=== PATIENT | male | born 1970 | race Hispanic/Latino ===

== ENCOUNTER 2018-08-09 23:47 | Emergency (ER) | payer SELFPAY ==
[~2018-08-09 23:47] MED LIST: CARV12.511 PO; HYDR-4154 PO; INSU100C6 SQ; INSU100V12 SQ; LEVO250T59 PO
[2018-08-10 00:29] LABS: BASOPHILS % (AUTO) 0.9 % (0.0-5.0); HEMATOCRIT 37.2 % (42-54); LYMPHOCYTES % (AUTO) 30.4 % (21.0-51.0); MEAN CORPUSCULAR HEMOGLOBIN 30.3 pg (27.0-33.0); MEAN CORPUSCULAR HGB CONC 34.2 g/dL (32.0-36.0); MEAN CORPUSCULAR VOLUME 88.5 fL (79-99); MONOCYTES % (AUTO) 5.7 % (3.0-13.0); NUCLEATED RED BLOOD CELLS 0.1 % (0.0-0.19); PLATELET COUNT (AUTO) 339 K/uL (130-400); RED CELL DISTRIBUTION WIDTH 14.6 % (11.0-15.5); WHITE BLOOD COUNT (AUTO) 9.6 K/uL (4.8-10.8)
[2018-08-10 00:48] LABS: INR 0.89 (0.85-1.15); PARTIAL THROMBOPLASTIN TIME 28.5 SEC (26.3-35.5); PROTHROMBIN TIME 9.4 SEC (9.6-11.6)
[2018-08-10 01:09] LABS: CREATININE 5.6 mg/dL (0.5-1.5); POTASSIUM 3.2 mmol/L (3.5-5.1)
[2018-08-10 01:14] LABS: ALBUMIN 3.3 g/dL (3.5-5.0); BILIRUBIN,TOTAL 0.2 mg/dL (0.2-1.0); TOTAL PROTEIN, SERUM 8.5 g/dL (6.0-8.3)
== END 2018-08-10 02:10 | disposition home or self-care (01) ==
LOC: EDH 23:47
DX: E11.65 Type 2 diabetes mellitus with hyperglycemia (principal); E11.22 Type 2 diabetes mellitus with diabetic chronic kidney disease; I12.0 Hypertensive chronic kidney disease with stage 5 chronic kidney disease or end stage renal disease; N18.6 End stage renal disease; Z99.2 Dependence on renal dialysis; Z79.4 Long term (current) use of insulin
CPT/HCPCS: 36415; 80053; 82550; 84484; 85025; 85610; 85730; 93005

== ENCOUNTER 2018-11-02 22:03 | Emergency (ER) | payer MEDICARE ==
[2018-11-02] MEDS ORDERED: CLONIDINE HCL 0.1 MG TABLET ONE (23:04)
[2018-11-02 23:23] LABS: INR 0.93 (0.85-1.15); PARTIAL THROMBOPLASTIN TIME 29.9 SEC (26.3-35.5); PROTHROMBIN TIME 9.8 SEC (9.6-11.6)
[2018-11-02 23:36] LABS: ALANINE AMINOTRANSFERASE 13 U/L (12-78); ASPARTATE AMINOTRANSFERASE 16 U/L (10-37); BILIRUBIN,TOTAL 0.3 mg/dL (0.2-1.0); CARBON DIOXIDE 28 mmol/L (21-32); CHLORIDE 97 mmol/L (101-111); CREATINE KINASE, TOTAL 312 U/L (21-232); GLOMERULAR FILTR. RATE CALC 7 mL/min (>60); MYOGLOBIN 456 ng/mL (10-92); POTASSIUM 3.7 mmol/L (3.5-5.1); SODIUM SERUM 134 mmol/L (136-145); TOTAL PROTEIN, SERUM 7.2 g/dL (6.0-8.3); UREA NITROGEN, BLOOD 39 mg/dL (7-18)
[2018-11-02 23:38] LABS: BASOPHILS % (AUTO) 0.7 % (0.0-5.0); EOSINOPHILS % (AUTO) 3.9 % (0.0-8.0); HEMATOCRIT 31.7 % (42-54); LYMPHOCYTES % (AUTO) 22.1 % (21.0-51.0); MEAN CORPUSCULAR HEMOGLOBIN 31.4 pg (27.0-33.0); MEAN CORPUSCULAR HGB CONC 34.4 g/dL (32.0-36.0); MEAN CORPUSCULAR VOLUME 91.1 fL (79-99); MONOCYTES % (AUTO) 6.7 % (3.0-13.0); NEUTROPHILS % (AUTO) 66.6 % (40.0-77.0); PLATELET COUNT (AUTO) 282 K/uL (130-400); RED BLOOD CELL COUNT(AUTO) 3.47 MIL/uL (4.50-6.20); RED CELL DISTRIBUTION WIDTH 14.9 % (11.0-15.5); WHITE BLOOD COUNT (AUTO) 10.9 K/uL (4.8-10.8)
[2018-11-02 23:39] LABS: CREATININE 8.3 mg/dL (0.5-1.5); GLUCOSE,RANDOM 512 mg/dL (70-105)
[2018-11-02 23:40] LABS: ALCOHOL, BLOOD < 3 mg/dL (0-10)
== END 2018-11-03 01:00 | disposition home or self-care (01) ==
LOC: EDH 22:03
DX: G51.0 Bell's palsy (principal); E11.22 Type 2 diabetes mellitus with diabetic chronic kidney disease; I12.9 Hypertensive chronic kidney disease with stage 1 through stage 4 chronic kidney disease, or unspecified chronic kidney disease; N18.3 Chronic kidney disease, stage 3 (moderate); Z79.4 Long term (current) use of insulin; Z99.2 Dependence on renal dialysis
CPT/HCPCS: 36415; 70450; 71045; 80053; 82550; 83874; 84484; 85025; 85610; 85730; 93005; 99285; G0480

== ENCOUNTER 2018-11-07 14:01 | Emergency (ER) | payer MEDICARE ==
[2018-11-07 14:48] LABS: BASOPHILS % (AUTO) 0.1 % (0.0-5.0); HEMATOCRIT 32.4 % (42-54); LYMPHOCYTES % (AUTO) 7.3 % (21.0-51.0); MEAN CORPUSCULAR HEMOGLOBIN 30.6 pg (27.0-33.0); MEAN CORPUSCULAR HGB CONC 33.9 g/dL (32.0-36.0); MEAN CORPUSCULAR VOLUME 90.3 fL (79-99); MONOCYTES % (AUTO) 2.1 % (3.0-13.0); NEUTROPHILS % (AUTO) 90.5 % (40.0-77.0); PLATELET COUNT (AUTO) 299 K/uL (130-400); RED BLOOD CELL COUNT(AUTO) 3.59 MIL/uL (4.50-6.20); RED CELL DISTRIBUTION WIDTH 14.3 % (11.0-15.5); WHITE BLOOD COUNT (AUTO) 15.1 K/uL (4.8-10.8)
[2018-11-07] MEDS ORDERED: LORAZEPAM 2 MG/ML 1 ML VIAL ONE (15:02)
[2018-11-07] MEDS ORDERED: HYDRALAZINE HCL 20 MG/ML VIAL ONE (15:02)
[2018-11-07 15:11] LABS: ALBUMIN 2.9 g/dL (3.5-5.0); BILIRUBIN,TOTAL 0.2 mg/dL (0.2-1.0); POTASSIUM 3.9 mmol/L (3.5-5.1); TOTAL PROTEIN, SERUM 7.1 g/dL (6.0-8.3)
[2018-11-07] MEDS ORDERED: INSULIN HUMULIN R 100 UNIT/ML 3ML ONE ×2 (16:10→17:18)
[2018-11-07] MEDS ORDERED: DiphenhydrAMINE HCL 50 MG/ML VIAL ONE (17:40)
[2018-11-07] MEDS ORDERED: HALOPERIDOL LACTATE 5 MG/ML VIAL ONE (17:41)
== END 2018-11-07 20:53 | disposition home or self-care (01) ==
LOC: EDH 14:01
DX: E11.65 Type 2 diabetes mellitus with hyperglycemia (principal); I12.9 Hypertensive chronic kidney disease with stage 1 through stage 4 chronic kidney disease, or unspecified chronic kidney disease; E11.22 Type 2 diabetes mellitus with diabetic chronic kidney disease; N18.3 Chronic kidney disease, stage 3 (moderate); F41.9 Anxiety disorder, unspecified; Z99.2 Dependence on renal dialysis
CPT/HCPCS: 36415; 80053; 82948; 85025; 93005; 96372; 96374; 96375; 96376; 99285; J0360; J1200; J1630; J1815 ×2; J2060

== ENCOUNTER → 2019-02-11 | Outpatient (CLI) | payer MEDICARE | END | disposition home or self-care (01) | LOC: OIH 13:25 | PROVIDERS: ATTEND Family Medicine | DX: M25.551 Pain in right hip (principal); M25.511 Pain in right shoulder; M25.512 Pain in left shoulder | CPT/HCPCS: 73030; 73502 ==

== ENCOUNTER 2019-03-14 21:40 | Observation (INO) | payer MEDICARE ==
[~2019-03-14] VITALS: Ht 167.6 cm; Wt 85.7 kg
[2019-03-14 23:26] LABS: EOSINOPHILS % (AUTO) 4.1 % (0.0-8.0); HEMATOCRIT 33.1 % (42-54); LYMPHOCYTES % (AUTO) 28.6 % (21.0-51.0); MEAN CORPUSCULAR HEMOGLOBIN 31.5 pg (27.0-33.0); MEAN CORPUSCULAR HGB CONC 34.6 g/dL (32.0-36.0); MEAN CORPUSCULAR VOLUME 90.9 fL (79-99); MONOCYTES % (AUTO) 7.1 % (3.0-13.0); NEUTROPHILS % (AUTO) 58.2 % (40.0-77.0); PLATELET COUNT (AUTO) 203 K/uL (130-400); RED BLOOD CELL COUNT(AUTO) 3.64 MIL/uL (4.50-6.20); RED CELL DISTRIBUTION WIDTH 14.2 % (11.0-15.5); WHITE BLOOD COUNT (AUTO) 7.7 K/uL (4.8-10.8)
[2019-03-14 23:39] LABS: INR 0.98 (0.85-1.15); PARTIAL THROMBOPLASTIN TIME 25.2 SEC (26.3-35.5); PROTHROMBIN TIME 10.3 SEC (9.6-11.6)
[2019-03-14 23:45] LABS: ALBUMIN 3.7 g/dL (3.5-5.0); BILIRUBIN,TOTAL 0.3 mg/dL (0.2-1.0); POTASSIUM 5.4 mmol/L (3.5-5.1); TOTAL PROTEIN, SERUM 7.8 g/dL (6.0-8.3)
[2019-03-14 23:47] LABS: CREATININE 8.2 mg/dL (0.5-1.5)
[2019-03-15] VITALS (7 sets, daily range): BP systolic 113–164; BP diastolic 65–89
[2019-03-15] MEDS ORDERED: ACETAMINOPHEN 325 MG TAB PO PRN (01:15)
[2019-03-15 01:21] LABS: APPEARANCE,URINE Clear (CLEAR); BILIRUBIN,URINE Negative (NEGATIVE); COLOR,URINE Yellow (YELLOW); GLUCOSE, URINE (UA) 250 mg/dL (NEGATIVE); KETONES,URINE Negative (NEGATIVE); LEUKOCYTE ESTERASE ,URINE Negative (NEGATIVE); NITRATE,URINE Negative (NEGATIVE); OCCULT BLOOD,URINE Nonhemolyzed Trace (NEGATIVE); PH,URINE >=9.0 (5.0-8.0); PROTEIN,URINE >=1000 mg/dL (NEGATIVE); UROBILINOGEN,URINE 0.2 mg/dL (0.2-1.0)
[2019-03-15 01:29] LABS: BACTERIA,URINE None Seen /HPF (None Seen); MUCUS,URINE Few LPF (None Seen); RBC,URINE 0-1 /HPF (0-1)
[2019-03-15] MEDS: CLONIDINE HCL 0.1 MG TABLET PO SCH (01:30)
[2019-03-15] MEDS ORDERED: HYDRALAZINE HCL 20 MG/ML VIAL IV PRN (01:30)
[2019-03-15] MEDS: FUROSEMIDE 10 MG/ML 2ML VIAL IV SCH (01:45)
[2019-03-15] MEDS ORDERED: CLONIDINE HCL 0.1 MG TABLET ONE (03:01)
[2019-03-15] MEDS ORDERED: FUROSEMIDE 10 MG/ML 2ML VIAL ONE (03:01)
[2019-03-15 06:50] LABS: EOSINOPHILS % (AUTO) 4.1 % (0.0-8.0); HEMATOCRIT 30.6 % (42-54); MEAN CORPUSCULAR HEMOGLOBIN 31.6 pg (27.0-33.0); MEAN CORPUSCULAR HGB CONC 34.7 g/dL (32.0-36.0); MEAN CORPUSCULAR VOLUME 91.1 fL (79-99); MONOCYTES % (AUTO) 7.4 % (3.0-13.0); NEUTROPHILS % (AUTO) 63.5 % (40.0-77.0); PLATELET COUNT (AUTO) 203 K/uL (130-400); RED BLOOD CELL COUNT(AUTO) 3.36 MIL/uL (4.50-6.20); RED CELL DISTRIBUTION WIDTH 14.2 % (11.0-15.5); WHITE BLOOD COUNT (AUTO) 9.2 K/uL (4.8-10.8)
[2019-03-15 06:58] LABS: HEMOGLOBIN A1C 8.7 % (4.0-6.0)
[2019-03-15 07:03] LABS: ALBUMIN 3.2 g/dL (3.5-5.0); BILIRUBIN,TOTAL 0.3 mg/dL (0.2-1.0); TOTAL PROTEIN, SERUM 6.6 g/dL (6.0-8.3)
[2019-03-15 07:08] LABS: CREATININE 8.3 mg/dL (0.5-1.5); POTASSIUM 6.3 mmol/L (3.5-5.1)
[2019-03-15] MEDS: INSULIN HUMULIN R 100 UNIT/ML 3ML SQ SCH ×4 (07:30→21:47)
[2019-03-15] MEDS ORDERED: MAGN250T2 PO (11:22)
[2019-03-15] MEDS ORDERED: FOLI1TAB61 PO (11:22)
[2019-03-15] MEDS ORDERED: SUCR500T PO (11:22)
[2019-03-15] MEDS ORDERED: CALC667C10 PO (11:22)
[2019-03-15] MEDS ORDERED: LOSA100T58 PO (11:22)
[2019-03-15] MEDS ORDERED: ATOR20TA65 PO (11:22)
[2019-03-15] MEDS: FAMOTIDINE 20MG TAB 20 MG TAB PO SCH (12:35)
[2019-03-15] MEDS ORDERED: SODIUM POLYSTYRENE SULFONATE 15 GM/60 ML ML PO ONE (14:15)
[2019-03-16] VITALS: BP 131/71
--- NOTE | 2019-03-16 00:05 | NUR ---
DIALYSIS TIME ON: 2104 TIME OFF: 0005 TOTAL FLUID REMOVED 1.8L TOTAL HOURS ON: 3 HOURS BP:121/65 HR: 89 RR: 18 T: 97.5 PATIENT TOLERATED WELL. Addendum: 03/17/19 at 0438 by CELSO CANTOR RN RN TIME 03/17/19 0005
[2019-03-16] MEDS: CLONIDINE HCL 0.1 MG TABLET PO SCH (01:30)
[2019-03-16] MEDS: FUROSEMIDE 10 MG/ML 2ML VIAL IV SCH (01:45)
[2019-03-16 04:00] VITALS: BP 126/73
[2019-03-16 04:38] LABS: HEMATOCRIT 30.7 % (42-54); MEAN CORPUSCULAR HEMOGLOBIN 31.4 pg (27.0-33.0); MEAN CORPUSCULAR HGB CONC 34.6 g/dL (32.0-36.0); MEAN CORPUSCULAR VOLUME 90.9 fL (79-99); PLATELET COUNT (AUTO) 193 K/uL (130-400); RED BLOOD CELL COUNT(AUTO) 3.37 MIL/uL (4.50-6.20); RED CELL DISTRIBUTION WIDTH 14.3 % (11.0-15.5); WHITE BLOOD COUNT (AUTO) 8.2 K/uL (4.8-10.8)
[2019-03-16 05:09] LABS: POTASSIUM 4.4 mmol/L (3.5-5.1); THYROID STIMULATING HORMONE 6.09 uIU/mL (0.36-3.74)
[2019-03-16 05:13] LABS: CREATININE 8.1 mg/dL (0.5-1.5)
[2019-03-16] MEDS: INSULIN HUMULIN R 100 UNIT/ML 3ML SQ SCH ×4 (06:05→21:00)
[2019-03-16 08:00] VITALS: BP 150/77
[2019-03-16] MEDS: FAMOTIDINE 20MG TAB 20 MG TAB PO SCH (08:11)
[2019-03-16 11:00] VITALS: BP 124/71
--- NOTE | 2019-03-16 11:30 | NUR ---
INITIAL MET W PT, AAOX3, LIVES W [facility] WHO WILL PROVIDE TRANSPORT HD [facility] - NO DME, INDP, DRIVES, DCP HOME Addendum: 03/16/19 at 1742 by PAT ARSHAD RN CM Amended: Links added.
[2019-03-16 16:00] VITALS: BP 135/69
[2019-03-16] MEDS: SUCROFERRIC OXYHYDROXIDE 500 MG PO SCH (16:55)
[2019-03-16] MEDS: CALCIUM ACETATE 667 MG CAPSULE PO SCH (16:55)
[2019-03-16] MEDS ORDERED: CARV25TA PO (17:35)
[2019-03-16] MEDS ORDERED: AMLO5TAB9 PO (17:37)
[2019-03-16 20:00] VITALS: BP 164/85
--- NOTE | 2019-03-16 20:53 | NUR ---
NOTIFIED JEANNE TO DO DIALYISIS ON PATIENT TODAY. 03/16/2019 PATIENT HAD 2 HOURS OF DIALYSIS YESTERDAY PER DR. WILSON ORDERS.
[2019-03-16] MEDS: HYDRALAZINE HCL 25 MG TABLET PO SCH (21:00)
[2019-03-16] MEDS: CARVEDILOL 25 MG TABLET PO SCH (21:00)
[2019-03-16] MEDS ORDERED: ATORVASTATIN CALCIUM 20 MG TABLET PO SCH (21:00)
[2019-03-16] MEDS ORDERED: LOSARTAN 100 MG TABLET PO SCH (21:00)
[2019-03-16] MEDS: ACETAMINOPHEN 325 MG TAB PO PRN (21:25)
[2019-03-17] VITALS: BP 133/73
[2019-03-17] MEDS: CLONIDINE HCL 0.1 MG TABLET PO SCH (01:30)
[2019-03-17] MEDS: FUROSEMIDE 10 MG/ML 2ML VIAL IV SCH (01:45)
--- NOTE | 2019-03-17 01:50 | NUR ---
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 SAYS IT OCCURRED AFTER HEMODIALYSIS. PENDING PHYSICIAN TO CALL BACK.
--- NOTE | 2019-03-17 01:55 | NUR ---
PHYSICIAN CALL BACK LALITA JACKSON ORDERED TORADOL 15 MG IV ONE TIME FOR PAIN. WILL PUT IN THE ORDER AND ADMINISTER MED.
[2019-03-17] MEDS ORDERED: KETOROLAC TROMETHAMINE 15MG/ML IV ONE (02:00)
[2019-03-17 04:00] VITALS: BP 137/73
[2019-03-17 05:36] LABS: HEMATOCRIT 31.6 % (42-54); MEAN CORPUSCULAR HEMOGLOBIN 31.4 pg (27.0-33.0); MEAN CORPUSCULAR HGB CONC 34.6 g/dL (32.0-36.0); MEAN CORPUSCULAR VOLUME 90.6 fL (79-99); NUCLEATED RED BLOOD CELLS 0.1 % (0.0-0.19); PLATELET COUNT (AUTO) 217 K/uL (130-400); RED BLOOD CELL COUNT(AUTO) 3.49 MIL/uL (4.50-6.20); RED CELL DISTRIBUTION WIDTH 14.1 % (11.0-15.5)
[2019-03-17 05:40] LABS: CREATININE 7.4 mg/dL (0.5-1.5); POTASSIUM 4.9 mmol/L (3.5-5.1)
[2019-03-17] MEDS: INSULIN HUMULIN R 100 UNIT/ML 3ML SQ SCH ×3 (06:21→18:04)
[2019-03-17] MEDS: ACETAMINOPHEN 325 MG TAB PO PRN (06:27)
[2019-03-17 07:00] VITALS: BP 162/79
[2019-03-17 07:15] LABS: HEPATITIS A ANTIBODY IGM Negative (Negative); HEPATITIS B CORE IGM Negative (Negative); HEPATITIS Bs ANTIGEN SCREEN P Negative (Negative)
[2019-03-17] MEDS: SUCROFERRIC OXYHYDROXIDE 500 MG PO SCH ×3 (08:00→17:00)
[2019-03-17] MEDS: CALCIUM ACETATE 667 MG CAPSULE PO SCH ×3 (08:00→17:00)
[2019-03-17] MEDS ORDERED: ASPIRIN 81MG TAB.CHEW PO SCH (09:00)
[2019-03-17] MEDS ORDERED: AMLODIPINE BESYLATE 5 MG TAB PO SCH (09:00)
[2019-03-17] MEDS ORDERED: FOLIC ACID/VITAMIN B COMP W-C 1 MG CAP/TAB PO SCH (09:00)
[2019-03-17] MEDS ORDERED: MAGNESIUM 250 MG PO SCH (09:00)
[2019-03-17] MEDS ORDERED: ATORVASTATIN CALCIUM 20 MG TABLET PO SCH (09:00)
[2019-03-17] MEDS: FAMOTIDINE 20MG TAB 20 MG TAB PO SCH (09:49)
[2019-03-17] MEDS: HYDRALAZINE HCL 25 MG TABLET PO SCH (09:51)
[2019-03-17] MEDS: CARVEDILOL 25 MG TABLET PO SCH (09:51)
[2019-03-17 11:00] VITALS: BP 113/71
[2019-03-17 16:00] VITALS: BP 149/79
--- NOTE | 2019-03-17 18:45 | NUR ---
DISCUSSED DISCHARGE INSTRUCTIONS AND FOLLOW UP WITH THE PATIENT VIA TEACH BACK AND HE VERBALIZED UNDERSTANDING. PATIENT LEFT THE UNIT STABLE AMBULATORY.
== END 2019-03-17 18:35 | disposition home or self-care (01) ==
LOC: EDH 21:40 → EDHIP 03-15 01:04 → 3BH 03-15 08:08
PROVIDERS: ADMIT Family Medicine; ATTEND Family Medicine
DX: R51 Headache (principal); H53.2 Diplopia; I16.0 Hypertensive urgency; I12.0 Hypertensive chronic kidney disease with stage 5 chronic kidney disease or end stage renal disease; E11.21 Type 2 diabetes mellitus with diabetic nephropathy; E11.22 Type 2 diabetes mellitus with diabetic chronic kidney disease; N18.6 End stage renal disease; E11.319 Type 2 diabetes mellitus with unspecified diabetic retinopathy without macular edema; E11.51 Type 2 diabetes mellitus with diabetic peripheral angiopathy without gangrene; R42 Dizziness and giddiness; E11.65 Type 2 diabetes mellitus with hyperglycemia; E87.5 Hyperkalemia; D64.9 Anemia, unspecified; Z99.2 Dependence on renal dialysis; Z91.19 Patient's noncompliance with other medical treatment and regimen; Z79.4 Long term (current) use of insulin; Z79.899 Other long term (current) drug therapy
CPT/HCPCS: 36415 ×4; 70450; 70480; 71045; 80048 ×2; 80053 ×2; 80074; 81001; 82550; 82948 ×10; 83036; 84100; 84443; 84484; 85025 ×2; 85027 ×2; 85610; 85730; 93005; 93306; 93880; 96372 ×3; 99284; G0378 ×61; J1815 ×7; J1940; 90935

== ENCOUNTER → 2019-05-02 | Outpatient (CLI) | payer MEDICARE ==
[~2019-05-02] MED LIST changes: +AMLO5TAB9 PO; +ATOR20TA65 PO; +CALC667C10 PO; -CARV12.511 PO; +CARV25TA PO; +FOLI1TAB61 PO; -INSU100V12 SQ; -LEVO250T59 PO; +LOSA100T58 PO; +MAGN250T2 PO; +SUCR500T PO
== END | disposition home or self-care (01) ==
LOC: OIH 13:17
PROVIDERS: ATTEND Internal Medicine
DX: M19.012 Primary osteoarthritis, left shoulder (principal); M19.011 Primary osteoarthritis, right shoulder; M25.111 Fistula, right shoulder; M25.112 Fistula, left shoulder
CPT/HCPCS: 73030

== ENCOUNTER 2019-10-28 12:27 | Emergency (ER) | payer MEDICARE, OTHER ==
[2019-10-28] MEDS ORDERED: ACETAMINOPHEN 325 MG TAB ONE (13:35)
== END 2019-10-28 14:25 | disposition home or self-care (01) ==
LOC: EDH 12:27
DX: R51 Headache (principal); E11.9 Type 2 diabetes mellitus without complications; E78.5 Hyperlipidemia, unspecified; I10 Essential (primary) hypertension; Z87.891 Personal history of nicotine dependence
CPT/HCPCS: 70450

== ENCOUNTER 2021-02-04 06:12 | Observation (INO) | payer MEDICARE, OTHER ==
[2021-02-04] VITALS (20 sets, daily range): BP systolic 105–204; BP diastolic 53–98
[~2021-02-04] VITALS: Ht 167.6 cm; Wt 87.0 kg
[~2021-02-04 06:12] MED LIST changes: +AMLO-257 PO; -AMLO5TAB9 PO
[2021-02-04] MEDS ORDERED: ACETAMINOPHEN 500 MG TABLET PO ONE (07:00)
[2021-02-04 07:17] LABS: BASOPHILS % (AUTO) 0.3 % (0.0-5.0); EOSINOPHILS % (AUTO) 1.5 % (0.0-8.0); HEMATOCRIT 30.7 % (42-54); LYMPHOCYTES % (AUTO) 10.7 % (21.0-51.0); MEAN CORPUSCULAR HEMOGLOBIN 32.4 pg (27.0-33.0); MEAN CORPUSCULAR HGB CONC 33.6 g/dL (32.0-36.0); MEAN CORPUSCULAR VOLUME 96.5 fL (79-99); MONOCYTES % (AUTO) 6.1 % (3.0-13.0); NEUTROPHILS % (AUTO) 81.1 % (40.0-77.0); PLATELET COUNT (AUTO) 187 K/uL (130-400); RED BLOOD CELL COUNT(AUTO) 3.18 MIL/uL (4.50-6.20); RED CELL DISTRIBUTION WIDTH 14.4 % (11.0-15.5); WHITE BLOOD COUNT (AUTO) 11.6 K/uL (4.8-10.8)
[2021-02-04 07:43] LABS: POTASSIUM 5.2 mmol/L (3.5-5.1)
[2021-02-04 07:47] LABS: BILIRUBIN,TOTAL 0.6 mg/dL (0.2-1.0); TOTAL PROTEIN, SERUM 7.7 g/dL (6.0-8.3)
[2021-02-04 07:55] LABS: CREATININE 14.1 mg/dL (0.5-1.5)
[2021-02-04] MEDS ORDERED: ACETAMINOPHEN 500 MG TABLET ONE (08:02)
[2021-02-04] MEDS ORDERED: VANCOMYCIN PROTOCOL PER PHARMACY IV SCH (09:30)
[2021-02-04] MEDS ORDERED: DEXTROSE 50%-WATER 50 ML DISP.SYRIN IV PRN (10:00)
[2021-02-04] MEDS ORDERED: VANCOMYCIN 1.25GM/NS 250ML IVPB SCH ×2 (10:00)
[2021-02-04] MEDS ORDERED: ACETAMINOPHEN 325 MG TAB PO PRN (10:00)
[2021-02-04] MEDS ORDERED: COMPOUND IV REFRIGERATED 1 EACH IVSOLN MISC PRN (10:00)
[2021-02-04] MEDS ORDERED: GLUCAGON 1MG KIT 1 MG ML IM PRN (10:00)
[2021-02-04] MEDS ORDERED: ONDANSETRON 4MG INJ IVP PRN (10:00)
[2021-02-04] MEDS: HEPARIN 5,000 UNIT VIAL SQ SCH ×2 (11:26→21:51)
[2021-02-04] MEDS: INSULIN HUMULIN R 100 UNIT/ML 3ML SQ SCH ×3 (11:30→21:00)
[2021-02-04] MEDS ORDERED: AZITHROMYCIN 250 MG TABLET PO SCH (12:30)
[2021-02-04] MEDS ORDERED: SEVE800T7 PO (13:01)
[2021-02-04] MEDS ORDERED: CHOL100046 PO (13:01)
[2021-02-04] MEDS ORDERED: FOLI1TAB61 PO (13:01)
[2021-02-04] MEDS ORDERED: INSU100V12 SQ (13:01)
[2021-02-04] MEDS ORDERED: HYDR100T27 PO (13:01)
[2021-02-04] MEDS ORDERED: TELM80TA10 PO (13:01)
[2021-02-04] MEDS ORDERED: INSU100I15 SQ (13:01)
[2021-02-04] MEDS: SEVELAMER HCL 800 MG TABLET PO SCH ×2 (14:00→21:49)
[2021-02-04] MEDS ORDERED: CLONIDINE HCL 0.2 MG TABLET PO SCH (14:00)
[2021-02-04] MEDS ORDERED: BENZONATATE 100 MG CAPSULE PO PRN (14:30)
[2021-02-04] MEDS ORDERED: GUAIFENESIN SUGAR-FREE 100 MG/5 ML UDCUP PO PRN (14:30)
[2021-02-04] MEDS ORDERED: IPRATROPIUM/ALBUTEROL SULFATE 3 ML SOLUTION IH PRN (14:30)
[2021-02-04] MEDS ORDERED: DOXYCYCLINE HYCLATE 100 MG TABLET PO SCH (21:00)
[2021-02-04] MEDS: TELMISARTAN 80 MG PO SCH (21:00)
[2021-02-04] MEDS: HYDRALAZINE 25MG TABLET PO SCH (21:49)
[2021-02-04] MEDS: CARVEDILOL 25 MG TABLET PO SCH (21:50)
[2021-02-05] VITALS (10 sets, daily range): BP systolic 108–163; BP diastolic 56–77
[2021-02-05 05:39] LABS: HEMATOCRIT 28.1 % (42-54); MEAN CORPUSCULAR HEMOGLOBIN 31.9 pg (27.0-33.0); MEAN CORPUSCULAR HGB CONC 32.4 g/dL (32.0-36.0); MEAN CORPUSCULAR VOLUME 98.6 fL (79-99); RED BLOOD CELL COUNT(AUTO) 2.85 MIL/uL (4.50-6.20); RED CELL DISTRIBUTION WIDTH 14.2 % (11.0-15.5); WHITE BLOOD COUNT (AUTO) 9.7 K/uL (4.8-10.8)
[2021-02-05] MEDS: INSULIN HUMULIN R 100 UNIT/ML 3ML SQ SCH ×4 (05:41→22:20)
[2021-02-05 05:55] LABS: ALBUMIN 3.3 g/dL (3.5-5.0); BILIRUBIN,TOTAL 0.6 mg/dL (0.2-1.0); MAGNESIUM 2.3 mg/dL (1.80-2.40); PHOSPHORUS 5.4 mg/dL (2.5-4.9); POTASSIUM 4.2 mmol/L (3.5-5.1)
[2021-02-05 06:12] LABS: CREATININE 10.2 mg/dL (0.5-1.5)
[2021-02-05] MEDS: **HM** VIT D3 25MCG PO SCH (09:00)
[2021-02-05] MEDS: Vitamin B Complex/Vit C/Folic Acid PO SCH (09:24)
[2021-02-05] MEDS: HYDRALAZINE 25MG TABLET PO SCH ×2 (09:24→20:46)
[2021-02-05] MEDS: SEVELAMER HCL 800 MG TABLET PO SCH ×3 (09:24→20:44)
[2021-02-05] MEDS: ATORVASTATIN 20 MG TABLET PO SCH (09:24)
[2021-02-05] MEDS: PANTOPRAZOLE 40 MG TAB DR PO SCH (09:24)
[2021-02-05] MEDS: CARVEDILOL 25 MG TABLET PO SCH ×2 (09:25→20:44)
[2021-02-05] MEDS: AMLODIPINE 5 MG TAB PO SCH (09:25)
[2021-02-05] MEDS ORDERED: SOLU-MEDROL 40MG VIAL IVP ONE (09:30)
[2021-02-05] MEDS: HEPARIN 5,000 UNIT VIAL SQ SCH ×2 (09:30→22:21)
[2021-02-05] MEDS ORDERED: RENAL DOSE IV PRN (09:30)
[2021-02-05] MEDS ORDERED: LEVOFLOXACIN 500 MG TABLET PO SCH (10:00)
[2021-02-05] MEDS: IPRATROPIUM/ALBUTEROL SULFATE 3 ML SOLUTION IH SCH ×2 (11:19→18:10)
[2021-02-05] MEDS: CALCIUM AC 667MG CAP PO SCH ×2 (12:16→16:34)
[2021-02-05] MEDS: SOLU-MEDROL 40MG VIAL IVP SCH ×2 (12:18→20:44)
[2021-02-05] MEDS: TELMISARTAN 80 MG PO SCH (20:46)
[2021-02-05] MEDS ORDERED: INSULIN GLARGINE 100 UNITS/ML 10 ML VIAL SQ SCH (21:00)
[2021-02-06] VITALS (20 sets, daily range): BP systolic 149–181; BP diastolic 73–83
[2021-02-06] MEDS: IPRATROPIUM/ALBUTEROL SULFATE 3 ML SOLUTION IH SCH ×3 (00:49→11:55)
[2021-02-06 05:23] LABS: BASOPHILS % (AUTO) 0.1 % (0.0-5.0); HEMATOCRIT 30.2 % (42-54); LYMPHOCYTES % (AUTO) 5.8 % (21.0-51.0); MEAN CORPUSCULAR HEMOGLOBIN 32.4 pg (27.0-33.0); MEAN CORPUSCULAR HGB CONC 33.1 g/dL (32.0-36.0); MEAN CORPUSCULAR VOLUME 97.7 fL (79-99); MONOCYTES % (AUTO) 0.9 % (3.0-13.0); NEUTROPHILS % (AUTO) 92.8 % (40.0-77.0); PLATELET COUNT (AUTO) 160 K/uL (130-400); RED BLOOD CELL COUNT(AUTO) 3.09 MIL/uL (4.50-6.20); RED CELL DISTRIBUTION WIDTH 13.7 % (11.0-15.5); WHITE BLOOD COUNT (AUTO) 10.5 K/uL (4.8-10.8)
[2021-02-06 05:36] LABS: MAGNESIUM 2.5 mg/dL (1.80-2.40); PHOSPHORUS 5.6 mg/dL (2.5-4.9)
[2021-02-06 05:45] LABS: CREATININE 12.5 mg/dL (0.5-1.5)
[2021-02-06 06:14] LABS: % IRON SATURATION 31.5 % (30-44)
[2021-02-06] MEDS: INSULIN HUMULIN R 100 UNIT/ML 3ML SQ SCH ×2 (06:40→12:55)
[2021-02-06 07:43] LABS: RETICULOCYTE % (AUTO) 1.41 % (0.42-2.23)
[2021-02-06] MEDS: CALCIUM AC 667MG CAP PO SCH ×2 (08:00→12:00)
[2021-02-06] MEDS: AMLODIPINE 5 MG TAB PO SCH (08:39)
[2021-02-06] MEDS: Vitamin B Complex/Vit C/Folic Acid PO SCH (08:39)
[2021-02-06] MEDS: SOLU-MEDROL 40MG VIAL IVP SCH (08:39)
[2021-02-06] MEDS: PANTOPRAZOLE 40 MG TAB DR PO SCH (08:39)
[2021-02-06] MEDS: ATORVASTATIN 20 MG TABLET PO SCH (08:39)
[2021-02-06] MEDS: CARVEDILOL 25 MG TABLET PO SCH (08:40)
[2021-02-06] MEDS ORDERED: ALBUHFA IH (08:42)
[2021-02-06] MEDS ORDERED: LEVO250T59 PO (08:42)
[2021-02-06] MEDS: HEPARIN 5,000 UNIT VIAL SQ SCH (08:50)
[2021-02-06] MEDS: **HM** VIT D3 25MCG PO SCH (08:51)
[2021-02-06] MEDS: SEVELAMER HCL 800 MG TABLET PO SCH ×2 (08:51→12:55)
[2021-02-06] MEDS: HYDRALAZINE 25MG TABLET PO SCH (08:51)
[2021-02-06] MEDS ORDERED: LEVOFLOXACIN 500 MG TABLET PO SCH (09:00)
== END 2021-02-06 15:25 | disposition home or self-care (01) ==
LOC: EDH 06:12 → EDHIP 09:20 → 3AH 15:07
PROVIDERS: ADMIT Internal Medicine; ATTEND Internal Medicine
DX: J18.9 Pneumonia, unspecified organism (principal); Z20.822 Contact with and (suspected) exposure to COVID-19; I12.0 Hypertensive chronic kidney disease with stage 5 chronic kidney disease or end stage renal disease; N18.6 End stage renal disease; E11.22 Type 2 diabetes mellitus with diabetic chronic kidney disease; E66.9 Obesity, unspecified; E87.70 Fluid overload, unspecified; E87.5 Hyperkalemia; D64.9 Anemia, unspecified; Z23 Encounter for immunization; Z68.30 Body mass index [BMI] 30.0-30.9, adult; Z79.4 Long term (current) use of insulin; Z79.899 Other long term (current) drug therapy; Z98.890 Other specified postprocedural states; Z99.2 Dependence on renal dialysis
CPT/HCPCS: 36415 ×3; 71045 ×2; 71250; 80048; 80053 ×2; 82607; 82728; 82948 ×10; 83605; 83690; 83735 ×2; 84100 ×2; 84443; 85025 ×2; 85027; 87040 ×2; 87635; 87804 ×2; 87880; 93005; 94640 ×6; 94664; 94667; 94668 ×2; 96365; 96366; 96372 ×3; 96375; 96376 ×2; 99285; C9803; G0378 ×46; J1644 ×5; J1815 ×3; J2920 ×3; J3370; J7050; 90935

== ENCOUNTER 2021-08-19 14:21 | Emergency (ER) | payer MEDICARE ==
[~2021-08-19] VITALS: Ht 167.6 cm; Wt 81.6 kg
[~2021-08-19 14:21] MED LIST changes: +ALBUHFA IH; -CALC667C10 PO; +CHOL100046 PO; -HYDR-4154 PO; +HYDR100T27 PO; -INSU100C6 SQ; +INSU100I15 SQ; +INSU100V12 SQ; +LEVO250T43 PO; -LOSA100T58 PO; -MAGN250T2 PO; +SEVE800T7 PO; -SUCR500T PO; +TELM80TA10 PO
[2021-08-19 14:23] VITALS: BP 154/79
[2021-08-19] MEDS ORDERED: CYCLOBENZAPRINE HCL 10 MG TABLET PO ONE (15:00)
[2021-08-19] MEDS ORDERED: ACETAMINOPHEN 500 MG TABLET PO ONE (15:00)
[2021-08-19 15:43] LABS: BASOPHILS % (AUTO) 0.7 % (0.0-5.0); EOSINOPHILS % (AUTO) 3.9 % (0.0-8.0); HEMATOCRIT 39.9 % (42-54); MEAN CORPUSCULAR HEMOGLOBIN 32.4 pg (27.0-33.0); MEAN CORPUSCULAR HGB CONC 33.6 g/dL (32.0-36.0); MEAN CORPUSCULAR VOLUME 96.4 fL (79-99); MONOCYTES % (AUTO) 10.8 % (3.0-13.0); NEUTROPHILS % (AUTO) 61.4 % (40.0-77.0); PLATELET COUNT (AUTO) 167 K/uL (130-400); RED BLOOD CELL COUNT(AUTO) 4.14 MIL/uL (4.50-6.20); RED CELL DISTRIBUTION WIDTH 13.7 % (11.0-15.5); WHITE BLOOD COUNT (AUTO) 5.6 K/uL (4.8-10.8)
[2021-08-19 16:05] LABS: ALBUMIN 4.1 g/dL (3.5-5.0); BILIRUBIN,TOTAL 0.3 mg/dL (0.2-1.0); CRP QUANTITATIVE 8.9 mg/L (0.00-9.0); POTASSIUM 4.5 mmol/L (3.5-5.1); TOTAL PROTEIN, SERUM 8.1 g/dL (6.0-8.3)
[2021-08-19] MEDS ORDERED: ACET-2247 PO (16:38)
[2021-08-19] MEDS ORDERED: CYCL10TA16 PO (16:38)
== END 2021-08-19 16:51 | disposition home or self-care (01) ==
LOC: EDH 14:21
DX: G44.209 Tension-type headache, unspecified, not intractable (principal); I12.0 Hypertensive chronic kidney disease with stage 5 chronic kidney disease or end stage renal disease; E11.22 Type 2 diabetes mellitus with diabetic chronic kidney disease; N18.6 End stage renal disease; Z98.890 Other specified postprocedural states; Z79.4 Long term (current) use of insulin; Z99.2 Dependence on renal dialysis; Z79.899 Other long term (current) drug therapy
CPT/HCPCS: 36415; 70450; 80053; 85025; 86140

== ENCOUNTER 2022-07-28 13:22 | Emergency (ER) | payer MEDICARE, OTHER ==
[~2022-07-28] VITALS: Ht 167.6 cm; Wt 91.2 kg
[~2022-07-28 13:22] MED LIST changes: +ACET-2247 PO; +CYCL10TA16 PO; -LEVO250T43 PO; +LEVO250T75 PO
[2022-07-28 13:34] VITALS: BP 168/90
[2022-07-28] MEDS ORDERED: ACETAMINOPHEN 500 MG TABLET PO ONE (15:30)
[2022-07-28] MEDS ORDERED: NIRM1TAB5 PO (16:54)
== END 2022-07-28 17:03 | disposition home or self-care (01) ==
LOC: EDH 13:22
DX: U07.1 COVID-19 (principal); I12.9 Hypertensive chronic kidney disease with stage 1 through stage 4 chronic kidney disease, or unspecified chronic kidney disease; E11.22 Type 2 diabetes mellitus with diabetic chronic kidney disease; N18.9 Chronic kidney disease, unspecified; Z79.899 Other long term (current) drug therapy; Z98.890 Other specified postprocedural states
CPT/HCPCS: 99284; 71045; 87635; C9803

== ENCOUNTER 2024-03-14 11:02 | Emergency (ER) | payer OTHER ==
[~2024-03-14] VITALS: Ht 167.6 cm; Wt 79.8 kg
[~2024-03-14 11:02] MED LIST changes: -ACET-2247 PO; -ALBUHFA IH; -AMLO-257 PO; +AMLO-258 PO; -ATOR20TA65 PO; -CHOL100046 PO; +CHOL2000 PO; -CYCL10TA16 PO; +FOLI0.8T2 PO; -FOLI1TAB61 PO; -HYDR100T27 PO; -INSU100I15 SQ; -INSU100V12 SQ; -LEVO250T75 PO; +ROSU20TA73 PO
[2024-03-14 11:03] VITALS: BP 167/80; PULSE 89; RESP 16; TEMP 97.7
[2024-03-14 12:16] LABS: BASOPHILS # (AUTO) 0.03 K/uL (0.00-0.20); BASOPHILS % (AUTO) 0.4 % (0.0-5.0); EOSINOPHILS # (AUTO) 0.33 K/uL (0.00-0.70); EOSINOPHILS % (AUTO) 4.4 % (0.0-8.0); HEMATOCRIT 27.9 % (42-54); IMMATURE GRANULOCYTE ABSOLUTE 0.03 K/uL (0-1); LYMPHOCYTES # (AUTO) 1.6 K/uL (1.0-4.8); LYMPHOCYTES % (AUTO) 21.6 % (21.0-51.0); MEAN CORPUSCULAR HEMOGLOBIN 33.7 pg (27.0-33.0); MEAN CORPUSCULAR HGB CONC 34.1 g/dL (32.0-36.0); MEAN CORPUSCULAR VOLUME 98.9 fL (79-99); MONOCYTES # (AUTO) 0.6 K/uL (0.1-1.0); MONOCYTES % (AUTO) 7.6 % (3.0-13.0); NEUTROPHILS % (AUTO) 65.6 % (40.0-77.0); PLATELET COUNT (AUTO) 236 K/uL (130-400); RED BLOOD CELL COUNT(AUTO) 2.82 MIL/uL (4.50-6.20); RED CELL DISTRIBUTION WIDTH 14.2 % (11.0-15.5); WHITE BLOOD COUNT (AUTO) 7.5 K/uL (4.8-10.8)
[2024-03-14 12:31] LABS: CREATININE 5.8 mg/dL (0.5-1.3); POTASSIUM 4.2 mmol/L (3.5-5.1)
== END 2024-03-14 13:21 | disposition home or self-care (01) ==
LOC: EDH 11:02
DX: I12.0 Hypertensive chronic kidney disease with stage 5 chronic kidney disease or end stage renal disease (principal); N18.6 End stage renal disease; E11.22 Type 2 diabetes mellitus with diabetic chronic kidney disease; D63.1 Anemia in chronic kidney disease; Z79.899 Other long term (current) drug therapy; Z91.041 Radiographic dye allergy status; Z95.5 Presence of coronary angioplasty implant and graft; Z99.2 Dependence on renal dialysis; Z98.890 Other specified postprocedural states
CPT/HCPCS: 36415; 80048; 85025; 86850; 86900; 86901